=== PATIENT | female | born 1970 ===

== ENCOUNTER 2017-04-16 13:11 | Emergency (ER) | payer OTHER ==
[2017-04-16] MEDS ORDERED: Sodium Chloride 0.9% 1,000 ML IV STA (14:17)
--- NOTE | 2017-04-16 14:22 | ED PDOC ---
HPI: Abdomen Time Seen by Provider: 04/16/17 13:20 Chief Complaint (Nursing): Abdominal Pain Chief Complaint (Provider): Abdominal Pain History Per: Patient History/Exam Limitations: no limitations Onset/Duration Of Symptoms: Days (x1) Additional Complaint(s): Emiyl Jin, 47 year old female presents to the ED for right flank pain occurring since yesterday. The patient reports visiting [facility] yesterday and was diagnosed with Renal Colic. She states her pain worsened which prompted her to visit the emergency room today. The patient also has nausea. She denies vomiting, fever, or any other urinary symptoms. PMD: None provided Past Medical History Reviewed: Historical Data, Nursing Documentation, Vital Signs Vital Signs: Last Vital Signs Temp 98.0 F 04/16/17 16:46 Pulse 75 04/16/17 16:46 Resp 14 04/16/17 16:46 BP 122/74 04/16/17 16:46 Pulse Ox 100 04/16/17 16:46 - Medical History PMH: Chronic Kidney Disease - Surgical History Surgical History: No Surg Hx - Family History Family History: States: Unknown Family Hx - Social History Current smoker - smoking cessation education provided: No Ex-Smoker (has not smoked in the last 12 months): No Alcohol: None Drugs: Denies - Home Medications Home Medications: Ambulatory Orders Medication Instructions Recorded Ibuprofen [Motrin] 600 mg PO Q6H PRN #20 tab 04/16/17 Tamsulosin [Flomax] 0.4 mg PO DAILY #14 cap 04/16/17 - Allergies Allergies/Adverse Reactions: Allergies Allergy/AdvReac Type Severity Reaction Status Date / Time latex Allergy RASH Verified 04/16/17 13:24 morphine Allergy RASH Verified 04/16/17 13:24 Review of Systems ROS Statement: Except As Marked, All Systems Reviewed And Found Negative Constitutional: Negative for: Fever Gastrointestinal: Positive for: Nausea, Abdominal Pain (right sided flank pain ) . Negative for: Vomiting Physical Exam - Reviewed Nursing Documentation Reviewed: Yes Vital Signs Reviewed: Yes - Physical Exam Appears: Positive for: Well, Non-toxic, No Acute Distress Head Exam: Positive for: ATRAUMATIC, NORMAL INSPECTION, NORMOCEPHALIC Skin: Positive for: Normal Color, Warm, DRY Eye Exam: Positive for: EOMI, Normal appearance, PERRL ENT: Positive for: Normal ENT Inspection Neck: Positive for: Normal, Painless ROM Cardiovascular/Chest: Positive for: Regular Rate, Rhythm Respiratory: Positive for: CNT, Normal Breath Sounds Gastrointestinal/Abdominal: Positive for: Normal Exam, Bowel Sounds, Soft, Tenderness (right sided flank tenderness ) Back: Positive for: Normal Inspection Extremity: Positive for: Normal ROM Neurologic/Psych: Positive for: Alert, Oriented - Laboratory Results Result Diagrams: 04/16/17 14:32 04/16/17 14:32 - ECG O2 Sat by Pulse Oximetry: 98 (RA) Pulse Ox Interpretation: Normal Medical Decision Making Medical Decision Making: Impression: Right sided flank pain Plan: * Beta-HCG, Quant * COMP Metabolic Panel * CBC (With Differential) * Toradol 30 mg IV Once * Zofran Inj 4 mg IV Once * Sodium Chloride 0.9% 1,000 ml IV 999 mls/hr * KUB RAD * Reevaluation KUB FINDINGS: BOWEL: Unremarkable bowel gas pattern. There is a 1.4 cm triangular calcification medial to the mid right kidney, possibly within the renal pelvis or proximal ureter. No renal calculus is identified. There are no other abnormal intra- abdominal calcifications identified. BONES: Normal. OTHER FINDINGS: None. IMPRESSION: 1.4 cm calcification medial to mid right kidney. Otherwise unremarkable examination. pt aware of results feels better tolerated po referral given to urology outpt pt understands results and is agreeable to plan Scribe Attestation: Documented by Liz Quiñones, acting as a scribe for Sharon Judd MD. Provider Scribe Attestation: All medical record entries made by the Scribe were at my direction and personally dictated by me. I have reviewed the chart and agree that the record accurately reflects my personal performance of the history, physical exam, medical decision making, and the department course for this patient. I have also personally directed, reviewed, and agree with the discharge instructions and disposition. Disposition - Clinical Impression Clinical Impression: Kidney stone - Patient ED Disposition Is Patient to be Admitted: No Counseled Patient/Family Regarding: Studies Performed, Diagnosis, Need For Followup - Disposition Referrals: [facility] [Outside] Jordon Parker MD [Medical Doctor] - Disposition Time: 15:00 Condition: IMPROVED Additional Instructions: follow up with urologist in 1-2 days return to the ED with any worsening or concerning symptoms. Prescriptions: Ibuprofen [Motrin] 600 mg PO Q6H PRN #20 tab PRN Reason: Pain, Moderate (4-7) Tamsulosin [Flomax] 0.4 mg PO DAILY #14 cap Instructions: Kidney Stones (ED), How to Strain Your Urine (ED) Print Language: SWEDISH
[2017-04-16 14:45] LABS: BASO % 0.2 % (0.0-2.0); EOS # 0.1 K/uL (0.0-0.7); EOS % 0.5 % (0.0-4.0); HEMOGLOBIN 12.1 g/dL (12.0-16.0); LYMPH # 1.4 K/uL (1.0-4.3); LYMPH % 12.9 % (20.0-40.0); MEAN CELL VOLUME 83.9 fl (81.0-99.0); MEAN CORPUSCULAR HEMOGLOBIN 27.6 pg (27.0-31.0); MEAN CORPUSCULAR HGB CONC 32.9 g/dL (33.0-37.0); MEAN PLATELET VOLUME 8.3 fl (7.2-11.7); MONO # 0.6 K/uL (0.0-0.8); MONO % 5.5 % (0.0-10.0); NEUT # 8.7 K/uL (1.8-7.0); NEUT % 80.9 % (50.0-75.0); RBC 4.39 Mil/uL (3.80-5.20); RED CELL DISTRIBUTION WIDTH 13.5 % (11.5-14.5); WHITE BLOOD COUNT 10.8 K/uL (4.8-10.8)
[2017-04-16 14:51] LABS: ALB/GLOB RATIO 1.5 (1.0-2.1); ALBUMIN 4.1 g/dL (3.5-5.0); ALT/SGPT 38 U/L (9-52); AST/SGOT 29 U/L (14-36); BLOOD UREA NITROGEN 18 mg/dl (7-17); CALCIUM 8.9 mg/dL (8.4-10.2); GFR AFRICAN-AMERICAN > 60; GFR NON-AFRICAN AMERICAN > 60
--- NOTE | 2017-04-16 15:16 | RAD ---
HISTORY: asses kidney stone COMPARISON: No prior. FINDINGS: BOWEL: Unremarkable bowel gas pattern. There is a 1.4 cm triangular calcification medial to the mid right kidney, possibly within the renal pelvis or proximal ureter. No renal calculus is identified. There are no other abnormal intra-abdominal calcifications identified. BONES: Normal. OTHER FINDINGS: None. IMPRESSION: 1.4 cm calcification medial to mid right kidney. Otherwise unremarkable examination.
[2017-04-16 16:32] LABS: SQUAMOUS EPITHIAL 1 /hpf (0-5); URINE BACTERIA FEW (<OCC); URINE BILIRUBIN NEGATIVE (NEGATIVE); URINE BLOOD NEGATIVE (NEGATIVE); URINE CLARITY SLIGHTY-CLOUDY (Clear); URINE COLOR YELLOW (YELLOW); URINE GLUCOSE (UA) NEG (Normal); URINE LEUKOCYTE ESTERASE SMALL Leu/uL (Negative); URINE NITRATE NEGATIVE (NEGATIVE); URINE PROTEIN 30 mg/dL (NEGATIVE); URINE UROBILINOGEN 0.2-1.0 mg/dL (0.2-1.0)
[2017-04-16 16:47] VITALS: BP 122/74; PULSE 75; RESP 14; TEMP 98
[2017-04-17 18:25] VITALS: O2SAT 98
== END 2017-04-16 16:43 | disposition home or self-care (01) ==
LOC: H.ER 13:11
DX: N20.0 Calculus of kidney (principal)